=== PATIENT | female | born 1980 | race Caucasian/White ===

== ENCOUNTER → 2017-06-17 | Outpatient (CLI) | payer SELFPAY ==
[~2017-06-17] MED LIST: BARIUM SUSPENSION 105% (LIQUID POLIBAR PLUS) 240 ML/DOSE PO ONE; BARIUM SUSPENSION 60% (LIQUID EZ PAQUE) 240 ML DOSE PO ONE
--- NOTE | 2017-06-17 10:13 | Diagnostic Imaging Report ---
EXAMINATION: Upper GI study, double contrast. Signals Intelligence Analyst image of the abdomen was performed. After the oral administration of gas forming granules, the patient drank thick and thin barium with visualization under fluoroscopy, with spot images taken over the esophagus, stomach and duodenum and followed by overhead images in the chest and abdomen. INDICATION: Gastroesophageal reflux.. FLUOROSCOPY TIME: One minutes and 20 seconds. FINDINGS: Signals Intelligence Analyst images of the abdomen demonstrate small to moderate amount of fecal material. The esophagus demonstrates normal caliber with no strictures. The mucosal pattern demonstrates no filling defects, diverticulum or ulceration. There is normal relaxation of the distal sphincter. Complete emptying of the barium is seen in standing position. There is slight delay in emptying of the esophagus on prone position however suggestive of a mild the peristaltic dysfunction. No tertiary contractions seen. There is no hiatal hernia. The stomach demonstrates normal distensibility with normal appearance of the mucosal folds. There are no ulcers or evidence of mass. The duodenal bulb and sweep appear normal. IMPRESSION: Suggestion of a slight peristaltic dysfunction of the esophagus only noted in prone position. Otherwise unremarkable double-contrast upper GI study. Dictated by: Dictated on workstation # [id number]
== END ==
LOC: RAD 08:59
PROVIDERS: ATTEND Surgery
DX: K21.9 Gastro-esophageal reflux disease without esophagitis (principal)
CPT/HCPCS: 74241

== ENCOUNTER 2017-07-07 08:17 | Outpatient (CLI) | payer SELFPAY ==
[~2017-07-07] VITALS: Ht 162.6 cm; Wt 114.3 kg
[2017-07-07] MEDS ORDERED: PARO40TA3 PO (08:34)
[2017-07-07] MEDS ORDERED: FOLI-74 PO (08:34)
[2017-07-07 08:39] VITALS: BP 140/70
[2017-07-07 09:16] LABS: BASOPHILS % (AUTO) 0 % (0-10); EOSINOPHILS # (AUTO) 0.1 10^3/uL (0.0-0.3); EOSINOPHILS % (AUTO) 2 % (0-10); LYMPHOCYTES # (AUTO) 0.7 X 10^3 (1.0-4.0); LYMPHOCYTES % (AUTO) 12 % (12-44); MEAN CORPUSCULAR HEMOGLOBIN 29 PG (25-34); MEAN CORPUSCULAR HGB CONC 34 G/DL (32-36); MEAN CORPUSCULAR VOLUME 86 FL (80-99); MEAN PLATELET VOLUME 9.5 FL (7.4-10.4); MONOCYTES # (AUTO) 0.5 X 10^3 (0.0-1.0); MONOCYTES % (AUTO) 9 % (0-12); NEUTROPHILS # (AUTO) 4.6 X 10^3 (1.8-7.8); NEUTROPHILS % (AUTO) 77 % (42-75); PLATELET COUNT 254 10^3/uL (130-400); RED BLOOD COUNT 4.25 10^6/uL (4.35-5.85)
== END 2017-07-07 08:55 | disposition home or self-care (01) ==
LOC: PREOP 08:17
PROVIDERS: ATTEND Surgery
DX: Z01.812 Encounter for preprocedural laboratory examination (principal); E66.01 Morbid (severe) obesity due to excess calories
CPT/HCPCS: 36415; 85025; 87081

== ENCOUNTER 2017-07-10 11:25 | Inpatient (IN) | payer SELFPAY ==
[~2017-07-10] VITALS: Ht 162.6 cm; Wt 109.1 kg
[2017-07-10] VITALS (7 sets, daily range): BP systolic 100–130; BP diastolic 61–77
[~2017-07-10 11:25] MED LIST changes: -BARIUM SUSPENSION 105% (LIQUID POLIBAR PLUS) 240 ML/DOSE PO ONE; -BARIUM SUSPENSION 60% (LIQUID EZ PAQUE) 240 ML DOSE PO ONE; +FOLI-74 PO; +PARO40TA3 PO
[2017-07-10] MEDS ORDERED: NS (IVPB) 50 ML ONE (11:56)
[2017-07-10] MEDS ORDERED: CLINDAMYCIN 600 MG/4ML (CLEOCIN) VIAL ONE (11:56)
[2017-07-10] MEDS ORDERED: CLINDAMYCIN 600 MG/NS 50 ML IVPB IV ONE ×2 (12:15)
[2017-07-10] MEDS ORDERED: BUP/EPI 0.5% 1:200,000 (MARCAINE) 10ML VIAL IJ ONE (12:27)
[2017-07-10] MEDS ORDERED: ONDANSETRON 4 MG/2 ML (SDV) Z0FRAN ONE (12:47)
[2017-07-10] MEDS ORDERED: ROCURONIUM 50 MG/5 ML (ZEMURON) VIAL IV ONE (12:47)
[2017-07-10] MEDS ORDERED: MIDAZOLAM 2 MG/2 ML (VERSED) VIAL ONE (12:47)
[2017-07-10] MEDS ORDERED: fentaNYL INJECTION 250 MCG/5 ML AMP ONE (12:47)
[2017-07-10] MEDS ORDERED: LIDOCAINE PF 2% 5 ML (XYLOCAINE) VIAL ONE (12:47)
[2017-07-10] MEDS ORDERED: SEVOFLURANE (ULTANE) 15 ML INHAL SOLN ONE ×4 (12:47→14:26)
[2017-07-10] MEDS ORDERED: proPOfol 200 MG/20 ML (DIPRIVAN) VIAL IV ONE (12:47)
[2017-07-10] MEDS ORDERED: DEXAMETHASONE 10 MG/ML (DECADRON) 1 ML VIAL ONE (12:47)
[2017-07-10] MEDS ORDERED: NS IV 1000 ML 1,000 ML IV SCH (12:48)
--- NOTE | 2017-07-10 12:48 | Progress Note-Pre Operative ---
Pre-Operative Progress Note H&P Reviewed The H&P was reviewed, patient examined and no changes noted. Date Seen by Provider: Jul 10, 2017 Time Seen by Provider: 12:45 Date H&P Reviewed: Jul 10, 2017 Time H&P Reviewed: 12:45 Pre-Operative Diagnosis: morbid obesity, LE edema EMILIANA ORTIZ MD Jul 10, 2017 12:48 pm
[2017-07-10] MEDS ORDERED: NALOXONE 0.4 MG/ML 1 ML (NARCAN) VIAL IV PRN (13:00)
[2017-07-10] MEDS ORDERED: oxyCODONE 20 MG/1 ML ORAL CONC (RoxiCODONE) CHARGE PER 1 ML PO PRN (13:00)
[2017-07-10] MEDS ORDERED: ONDANSETRON 4 MG/2 ML (SDV) Z0FRAN IV PRN (13:00)
[2017-07-10] MEDS ORDERED: metroNIDAZOLE 500MG/100ML IVPB 100 ML IV SCH (13:00)
[2017-07-10] MEDS ORDERED: diphenhydrAMINE 50 MG/ML INJ (BENADRYL) IVP PRN (13:00)
[2017-07-10] MEDS ORDERED: SCOPOLAMINE 1.5 MG (TRANSDERM-SCOP) PATCH TOP ONE (13:00)
[2017-07-10] MEDS ORDERED: diphenhydrAMINE 50 MG/ML INJ (BENADRYL) IV PRN (13:00)
[2017-07-10] MEDS ORDERED: FAMOTIDINE 20MG/2ML IV (PEPCID) IV ONE (13:00)
[2017-07-10] MEDS ORDERED: ONDANSETRON 4 MG/2 ML (SDV) Z0FRAN IV ONE (13:00)
[2017-07-10] MEDS ORDERED: fentaNYL PCA 300 MCG/30 ML VIAL IV PRN (13:00)
[2017-07-10] MEDS ORDERED: METOCLOPRAMIDE INJ 10 MG/2 ML (REGLAN) IV PRN (13:00)
[2017-07-10] MEDS ORDERED: RT-ALBUTEROL SULF 2.5 MG/3 ML PRE-MIX VIAL INH SCH (13:00)
[2017-07-10] MEDS ORDERED: PANT40TA2 PO (13:04)
[2017-07-10] MEDS ORDERED: ONDN4T PO (13:04)
[2017-07-10] MEDS ORDERED: OXYC-473 PO (13:04)
--- NOTE | 2017-07-10 13:05 | Discharge Inst-Surgical ---
D/C Lap Instructions-ANGEL New, Converted, or Re-Newed RX: RX on Chart Follow Up Appt in 2 weeks Activity as tolerated No driving for 24 hours No driving while on pain medications Incentive Spirometry use every 2 hours while awake Phase 1 clear liquid diet 2 weeks. Symptoms to Report: Fever over 101 degree F, Nausea/Vomiting Infection Signs and Symptoms to report: Increased redness, Foul odor of wound, Increased drainage Bathing instructions: May shower Operative Area Clean/Dry; Keep incision clean/dry If any problems/questions: Contact your physician or go to Emergency Room EMILIANA ORTIZ MD Jul 10, 2017 1:05 pm
[2017-07-10] MEDS: LACTATED RINGERS 1,000 ML IV PRN ×2 (13:09→13:53)
[2017-07-10] MEDS ORDERED: CLINDAMYCIN INJECTION 600 MG in NS (IVPB) 50 ML IV SCH (14:00)
[2017-07-10] MEDS ORDERED: fentaNYL INJECTION 100 MCG/2 ML AMP ONE (15:03)
[2017-07-10] MEDS ORDERED: HYDROmorphone (DILAUDID) 2 MG/ML VIAL ONE (15:04)
[2017-07-10] MEDS ORDERED: MEPERIDINE (DEMEROL) INJ 50 MG/ML ONE (15:05)
[2017-07-10] MEDS ORDERED: GLYCOPYRROLATE 0.2 MG/ML (ROBINUL) 2 ML VIAL ONE (15:24)
[2017-07-10] MEDS ORDERED: NEOSTIGMINE (BLOXIVERZ ) 1 MG/1ML 10 ML VIAL ONE (15:24)
--- NOTE | 2017-07-10 15:44 | Progress Note-Post Operative ---
Post-Operative Progess Note Surgeon (s)/Sweatband Cutting Machine Operator (s) Surgeon EMILIANA ORTIZ MD Sweatband Cutting Machine Operator: marco [place] OCCUPATIONAL THERAPIST'S ASSISTANT Pre-Operative Diagnosis morbid obesity, LE edema Post-Operative Diagnosis same Procedure & Operative Findings Date of Procedure 07/10/17 Procedure Performed/Findings laparoscopic gastric sleeve resection. Anesthesia Type GET Estimated Blood Loss Estimated blood loss (mL): minimal Specimens/Packing Specimens Removed stomach EMILIANA ORTIZ MD Jul 10, 2017 3:44 pm
[2017-07-10] MEDS ORDERED: KETOROLAC 30 MG/ML VIAL IVP ONE (16:00)
[2017-07-10] MEDS ORDERED: PROMETHAZINE INJ 25 MG/ML (PHENERGAN) AMP IVP PRN (16:00)
[2017-07-10] MEDS ORDERED: ONDANSETRON 4 MG/2 ML (SDV) Z0FRAN IVP PRN (16:00)
[2017-07-10] MEDS: HYDROmorphone (DILAUDID) 2 MG/ML VIAL IVP PRN ×4 (16:25→16:55)
[2017-07-10] MEDS ORDERED: RT-ALBUTEROL SULF 2.5 MG/3 ML PRE-MIX VIAL ONE (18:10)
[2017-07-10] MEDS ORDERED: oxyCODONE 5 MG/5 ML ORAL SOLN (roxiCODONE) 5 ML UDC PO PRN (19:15)
[2017-07-10] MEDS ORDERED: INFLUENZA TRIvalent 2017-2018 0.5 ML/45 MCG SYR IM ONE (19:30)
[2017-07-10] MEDS: ONDANSETRON 4 MG/2 ML (SDV) Z0FRAN IVP SCH (19:49)
[2017-07-10] MEDS: METOCLOPRAMIDE INJ 10 MG/2 ML (REGLAN) IVP SCH (19:49)
[2017-07-10] MEDS: ENOXAPARIN 30 MG/0.3 ML (LOVENOX) SYR SC SCH (19:49)
[2017-07-10] MEDS: metroNIDAZOLE 500MG/100ML IVPB 100 ML IV SCH (19:49)
[2017-07-10] MEDS: LACTATED RINGERS 1,000 ML IV SCH ×2 (19:50→21:22)
[2017-07-10] MEDS: CLINDAMYCIN INJECTION 600 MG in NS (IVPB) 50 ML IV SCH (21:27)
[2017-07-10] MEDS: RT-ALBUTEROL SULF 2.5 MG/3 ML PRE-MIX VIAL INH SCH (23:00)
[2017-07-11 00:35] VITALS: BP 124/82
[2017-07-11] MEDS: METOCLOPRAMIDE INJ 10 MG/2 ML (REGLAN) IVP SCH ×3 (01:04→12:04)
[2017-07-11] MEDS: ONDANSETRON 4 MG/2 ML (SDV) Z0FRAN IVP SCH ×3 (01:04→12:04)
--- NOTE | 2017-07-11 02:20 | OPERATIVE REPORT ---
DATE OF SERVICE: 07/10/2017 ATTENDING PRIMARY CARE PHYSICIAN: Dr. Heath. PREOPERATIVE DIAGNOSES: Morbid obesity, bilateral lower extremity edema, anxiety, depression. POSTOPERATIVE DIAGNOSES: Morbid obesity, bilateral lower extremity edema, anxiety, depression. PROCEDURE: Laparoscopic gastric sleeve resection. SURGEON: Dr. Ortiz. REPAIR OPERATOR: Devang Saba APRN. ANESTHESIA: General endotracheal. ESTIMATED BLOOD LOSS: 150 mL. FINDINGS: No hiatal hernia, normal appearing gallbladder. DISPOSITION: The patient tolerated the procedure well. INDICATIONS: The patient is a 36-year-old female with history of morbid obesity and in a medical weight loss program for the laparoscopic gastric sleeve resection and meets the medical criteria for bariatric surgery. She began to gain the majority of her adult weight after complete hysterectomy in 2007. Since that time, she has tried a number of diet and exercise attempts without any success. She has tried diet programs, bit of weight watchers, Laureen Nav, [place], [place], Atkins and Arbon diets and would not have any success. She has tried a multitude of exercise regimens including aerobic exercise classes, stationary bike, walking, gazelle exercise machine, and again no success. She has also tried medications including phentermine, fenfluramine, metformin, and Topamax and may lose a small amount of weight; however, would regain the weight back as well as some more over time. Her medical comorbidities related to her obesity include lower extremity edema, anxiety and depression. The patient was brought to the operating room, laid supine on the table. After adequate IV pain and sedative medications and a general endotracheal intubation, the abdomen was prepped and draped in standard surgical fashion. A 0.5% Marcaine with epinephrine was then used to anesthetize the overlying skin in the left upper abdominal quadrant and a small transverse skin incision made using a 15 blade. An 0 silk suture was applied to the medial aspect of the incision for retraction and a Veress needle inserted with a low opening pressure of 0 mmHg and the abdomen was then insufflated to 15 mmHg pressure. The Veress needle removed and a 5 mm Xcel trocar placed followed by a 5 mm 45 degree angle laparoscope visualizing the peritoneal cavity. A 4-quadrant abdominal exploration was performed. There was mild hepatomegaly. The gallbladder appeared normal. There was no hiatal hernia identified. Under direct visualization, we then proceeded to place the midabdominal 5 mm port. In a similar manner, a midabdominal right of midline 15 mm port was placed, after the skin and peritoneum were anesthetized using 0.5% Marcaine with epinephrine. A transverse skin incision made using a 15 blade. In a similar manner, a right upper abdominal quadrant 5 mm port was placed. An area in the epigastric region was then anesthetized and a small transverse skin incision made using an 11 blade. A tract was then created through the abdominal wall layers using a trocar through a 5 mm port and through this opening, a medium-sized Nathansen liver retractor was placed and the left lobe of the liver retracted anteriorly and superiorly. The patient was placed in steep reverse Trendelenburg position. We then measured along the greater curvature approximately 6 cm from the pylorus and marked this with a marking pen. The gastrohepatic ligament next to the stomach was then opened using a Sonicision and the lesser sac entered. We then proceeded with inferior dissection until we were approximately 2 cm below our markings using the Sonicision with visualization of good hemostasis. We then proceeded with superior dissection taking down the short gastric vessels next to the stomach using the Sonicision with visualization of good hemostasis. The angle of His connective tissue fibers were taken down as well as the posterior stomach behind it. A 42-Irish bougie was then placed under direct visualization and directed into the pylorus. We then proceeded with a gastric sleeve resection starting approximately 2 cm below our marking using a HUMBERTO 45 mm polyglycolic acid black load. We then proceeded with a gastric sleeve following the bougie as a guide with a 160 black load followed by 3 purple loads. Good hemostasis was observed. The staple line corners were then buttressed with 5 mm clips. Tisseel fibrin glue was then placed over the staple line and the omentum placed over the staple line. The liver retractor was then removed. The stomach was removed through the 15 mm port site. The patient was then planed back to flat and the fascia and peritoneum to the 15 and 10 mm port sites were then closed under direct visualization using a Vinayak-Mariangel device and 0 Vicryl suture. The abdomen was desufflated and remaining ports were removed. All skin incisions were closed using 4-0 Monocryl running subcuticular sutures. Wounds were then cleaned and covered with Dermabond. The patient tolerated the procedure well. We will admit her to the floor and start pain control with a GLUE JOINTER OPERATOR. We will also proceed with DVT prophylaxis with early ambulation, calf SCDs as well as Lovenox injections. Tomorrow morning, we will start a phase 1 clear liquid diet. Once she is tolerating 60 mL every half an hour, has adequate pain control with oral pain medication controlled nausea, vomiting and is ambulating well, we will discharge her home. Job ID: [id number] DocumentID: [id number] Dictated Date: 07/10/2017 15:58:33 Data Programmer Date: 07/11/2017 02:19:52 Dictated By: EMILIANA ORTIZ MD [facility]
[2017-07-11] MEDS: RT-ALBUTEROL SULF 2.5 MG/3 ML PRE-MIX VIAL INH SCH ×4 (03:23→13:45)
[2017-07-11] MEDS: LACTATED RINGERS 1,000 ML IV SCH ×3 (03:58→15:29)
[2017-07-11 04:00] VITALS: BP 125/75
[2017-07-11] MEDS: metroNIDAZOLE 500MG/100ML IVPB 100 ML IV SCH ×2 (04:00→12:05)
[2017-07-11] MEDS: CLINDAMYCIN INJECTION 600 MG in NS (IVPB) 50 ML IV SCH ×2 (05:41→14:40)
[2017-07-11 06:17] LABS: MEAN PLATELET VOLUME 9.6 FL (7.4-10.4); RED BLOOD COUNT 4.12 10^6/uL (4.35-5.85); RED CELL DISTRIBUTION WIDTH 12.9 % (10.0-14.5); WHITE BLOOD COUNT 9.6 10^3/uL (4.3-11.0)
[2017-07-11 06:34] LABS: ANION GAP 10 MMOL/L (5-14); BLOOD UREA NITROGEN 5 MG/DL (7-18); BUN/CREATININE RATIO 7; CALCIUM 8.7 MG/DL (8.5-10.1); CARBON DIOXIDE 22 MMOL/L (21-32); CHLORIDE 107 MMOL/L (98-107); CREATININE SERUM 0.73 MG/DL (0.60-1.30); GFR ESTIMATED > 60; GLUCOSE 118 MG/DL (70-105); POTASSIUM 4.2 MMOL/L (3.6-5.0); SODIUM 139 MMOL/L (135-145)
[2017-07-11 08:00] VITALS: BP 113/73
[2017-07-11] MEDS ORDERED: PANTOPRAZOLE 40 MG/10 ML (PROTONIX) VIAL IV SCH (09:00)
[2017-07-11] MEDS ORDERED: SENNA W/DOCUSATE (SENOKOT S) TABLET PO SCH (09:00)
[2017-07-11] MEDS: ENOXAPARIN 30 MG/0.3 ML (LOVENOX) SYR SC SCH (09:06)
--- NOTE | 2017-07-11 09:12 | Anesthesia-General Post-Op ---
General Patient Condition Mental Status/LOC: Same as Preop Cardiovascular: Satisfactory Nausea/Vomiting: Absent Respiratory: Satisfactory Pain: Controlled Complications: Absent Post Op Complications Complications None Follow Up Care/Instructions Patient Instructions None needed. Anesthesia/Patient Condition Patient Condition Patient is doing well, no complaints, stable vital signs, no apparent adverse anesthesia problems. No complications reported per nursing. MARCELLA BURKETT CRNA Jul 11, 2017 09:12
--- NOTE | 2017-07-11 11:13 | Progress Note (SOAP) ---
Subjective Date Seen by Provider: Jul 11, 2017 Time Seen by Provider: 10:00 Subjective/Events-last exam doing well. nausea controlled. tolerating liquids. ambulating Objective Exam Vital Signs Date Time Temp Pulse Resp B/P (MAP) Pulse Ox O2 Delivery O2 Flow Rate FiO2 07/11/17 08:00 98.6 93 20 113/73 96 Nasal Cannula 3.00 07/11/17 06:21 98 Nasal Cannula 2.00 07/11/17 06:12 18 07/11/17 04:00 98.8 97 16 125/75 97 Nasal Cannula 3.00 07/11/17 03:23 98 Nasal Cannula 2.00 07/11/17 00:35 98.4 74 19 124/82 99 Nasal Cannula 3.00 07/10/17 23:00 97 Nasal Cannula 3.00 07/10/17 21:00 Nasal Cannula 3.00 07/10/17 20:35 97.8 80 17 110/61 96 Nasal Cannula 3.00 07/10/17 20:03 18 07/10/17 20:03 18 07/10/17 19:35 98.2 93 18 112/62 94 Nasal Cannula 3.00 07/10/17 19:19 96 Nasal Cannula 3.00 07/10/17 18:35 98.1 97 17 118/69 97 Nasal Cannula 3.00 07/10/17 18:30 97.1 68 16 100/69 97 Nasal Cannula 3.00 07/10/17 17:40 97.1 68 16 100/69 97 Nasal Cannula 3.00 07/10/17 17:35 98.8 101 18 114/77 95 Nasal Cannula 3.00 07/10/17 16:55 98.7 07/10/17 16:45 98.7 07/10/17 16:35 98.7 07/10/17 16:25 98.7 07/10/17 12:30 97.1 68 16 130/69 97 Room Air Capillary Refill : General Appearance: No Apparent Distress HEENT: PERRL/EOMI Neck: Full Range of Motion Respiratory: Chest Non Tender, Lungs Clear Cardiovascular: Regular Rate, Rhythm Gastrointestinal: normal bowel sounds, soft Extremity: Normal Capillary Refill Neurologic/Psychiatric: Alert, Oriented x3 Skin: Normal Color Lymphatic: No Adenopathy Results Lab Laboratory Tests 07/11/17 05:44: White Blood Count 9.6, Red Blood Count 4.12L, Hemoglobin 11.9, Hematocrit 36, Mean Corpuscular Volume 88, Mean Corpuscular Hemoglobin 29, Mean Corpuscular Hemoglobin Concent 33, Red Cell Distribution Width 12.9, Platelet Count 231, Mean Platelet Volume 9.6, Sodium Level 139, Potassium Level 4.2, Chloride Level 107, Carbon Dioxide Level 22, Anion Gap 10, Blood Urea Nitrogen 5L, Creatinine 0.73, Estimat Glomerular Filtration Rate > 60, BUN/Creatinine Ratio 7, Glucose Level 118H, Calcium Level 8.7 Assessment/Plan Assessment/Plan Assess & Plan/Chief Complaint s/p lap sleeve ambulate. phase 1 clear liquid diet. home soon. Clinical Quality Measures DVT/VTE Risk/Contraindication: Risk Factor Score Per Nursin RFS Level Per Nursing on Admit: 4+=Very High EMILIANA ORTIZ MD Jul 11, 2017 11:12 am
[2017-07-11 12:00] VITALS: BP 119/65
[2017-07-11] MEDS ORDERED: ONDANSETRON 4 MG/2 ML (SDV) Z0FRAN IVP PRN (13:00)
[2017-07-11] MEDS ORDERED: METOCLOPRAMIDE INJ 10 MG/2 ML (REGLAN) IVP PRN (13:00)
[2017-07-11 15:25] VITALS: BP 126/80
== END 2017-07-11 16:30 | disposition home or self-care (01) | DRG 621 ==
LOC: SDC 11:25 → 4TH 11:25 → EDSTATUS 12:45 → 4TH 17:35 → SDC 17:35 → 4TH 07-11 16:30
PROVIDERS: ADMIT Surgery; ATTEND Surgery
PROC: 0DB64Z3 Excision of Stomach, Percutaneous Endoscopic Approach, Vertical (ICD-10-PCS; principal; 2017-07-10 13:18)
DX: E66.01 Morbid (severe) obesity due to excess calories (principal); Z68.41 Body mass index [BMI] 40.0-44.9, adult; R60.0 Localized edema; F41.9 Anxiety disorder, unspecified; F32.9 Major depressive disorder, single episode, unspecified
CPT/HCPCS: 36415; 80048; 85027; 94640; 94664; 94760